=== PATIENT | female | born 1960 | race Caucasian/White ===

== ENCOUNTER 2018-01-12 21:14 | Emergency (ER) | payer OTHER, SELFPAY ==
[2018-01-12 21:15] VITALS: BP 171/100; PULSE 120; RESP 16; TEMP 36.8; O2SAT 94; BMI 42.1
[2018-01-12 22:51] LABS: Absolute Lymphocyte Count 2.11 X10^3/ul (0.83-4.51); Absolute Neutrophil Count 4.9 X10^3/uL (2.0-7.7); Basophil# 0.04 X10^3/uL; Basophil% 0.5 % (0-1); Eosinophil# 0.21 X10^3/uL; Eosinophils% 2.6 % (0-5); Hematocrit 43.5 % (37-47); Hemoglobin 14.2 g/dl (12.0-15.0); Lymphocyte # 2.11 X10^3/ul (4.0); Lymphocyte % 26.6 % (19-41); Mean Corp Hgb Conc 32.6 g/gl (32-36); Mean Corpuscular Hgb 27.7 pg (27.0-32.0); Mean Platelet Vol. 10.7 fl (6.2-12.0); Monocyte# 0.64 X10^3/uL; Monocyte% 8.1 % (0-10); Neutrophil # 4.92 X10^3/uL (2.7-7.7); Neutrophil % 62.1 % (47-70); Platelet Count 196 K/mm3 (150-450); RBC Distribution Width CV 14.1 % (11.6-14.6); RBC Distribution Width SD 44.6 fl (35.1-43.9); Red Blood Count 5.12 M/mm3 (4.2-5.4); White Blood Count 7.9 K/mm3 (4.4-11.0)
[2018-01-12 23:00] LABS: POSITIVE COUNT NO; POSITIVE DIFFERENTIAL NO; POSITIVE MORPHOLOGY NO
[2018-01-12 23:04] LABS: Anion Gap 6 (5-15); BUN 20 mg/dL (7-18); BUN/Creat Ratio 26.8 RATIO (10-20); Calcium,Total 8.8 mg/dL (8.5-10.1); Chloride 107 mmol/L (98-107); Creatinine, Serum 0.75 mg/dL (0.55-1.02); EST Glomerular Filtration Rate 85 mL/min (>60); Est Glom Filt Rate - Afr Amer 103 mL/min (>60); Estimated Creatinine Clearance 81.45 ml/min; Glucose 127 mg/dL (74-106); Potassium 3.7 mmol/L (3.5-5.1); Sodium Level 140 mmol/L (136-145)
--- NOTE | 2018-01-12 23:19 | ED.DCSUM_ITS ---
- ER Visit Summary Date of Service: 01/12/18 Chief Complaint: Bilateral paresthesia from her toes to lips. History of Present Illness: The patient is a 57 F who presents with paresthesia that is bilateral. She denies headache, visual, ocular auditory symptoms. She denies ringing in her ears but does report bilateral muffled hearing. She denies rhinorrhea, congestion or postnasal drainage. She denies trouble with speech or swallowing. She denies cardiac, respiratory or GI symptoms. She denies dysuria, frequency, urgency or hematuria. She reports her arms feel heavy. She did not complaining of weakness or problems with coordination. There is no history of trauma. She has no significant past medical history. She reports she does not have a doctor. She is a smoker of half pack per day. Physical Examination: Vital signs noted and remarkable for a blood pressure 171/100 and heart rate of 120. BMI is 42.1. Head is atraumatic normocephalic. Pupils are equal round reactive. Extraocular muscles are intact. TMs are pearly white with landmarks noted. Nares patent with no drainage. Posterior pharynx without erythema or exudate. Uvula is midline. There is no dysphonia or dysphasia. Trachea is midline. There is no stridor with auscultation of the neck. Funduscopic exam reveals normal cup-to-disc ratio and no evidence of papilledema. Negative Chvostek sign. Heart is regular without murmur, gallop or rub. S1 and S2 are normal. Lungs are clear to auscultation with good movement of air bilaterally. Abdomen is soft nontender. Patient is alert and oriented ?3. Motor is 5 over 5. Sensory is intact. DTRs are symmetric with no clonus or Babinski sign. Cranial 2 through 12 are intact. Cerebellar testing is normal. Gait observed and normal. She is able to walk on her heels and toes. She was able to perform tandem gait without difficulty. She was able to walk backwards without difficulty. Romberg test with eyes open and closed was negative. Test Results: Basic metabolic panel revealed glucose of 127. CBC is normal. Emergency Department Course and Treatment: Because she is complaining of paresthesias will obtain electrolyte panel. Only medication is [id number] herbal supplements. Treatment Plan: Patient was informed paresthesia involving the entire body is not stroke, which was her main concern. She was informed that because of her numbness/tingling is unknown. Disposition: Discharged home with appropriate home-going instructions Impression: Bilateral paresthesia involving face, torso and extremities This note was generated with [employer] dictation software. It may contain incorrect words, spelling, and punctuation that were not noted in review of the chart prior to signing ED Disposition - Plan for ED Patient: Disposition: Home or Assisted Living Chief Complaint: Numb/Ting Instructions: ED Paraesthesias Referrals: Care Physician,Natalee Primary [Primary Care Provider] - Jersey Gibbons DO [STAFF PHYSICIAN] - 3-5 Days
[2018-01-12 23:45] VITALS: BP 138/90; PULSE 96; RESP 18; O2SAT 97
== END 2018-01-12 23:45 | disposition home or self-care (01) ==
PROVIDERS: Emergency Provider Emergency Medicine
DX: R20.2 Paresthesia of skin (principal); Z72.0 Tobacco use; E66.9 Obesity, unspecified; Z68.41 Body mass index [BMI] 40.0-44.9, adult
CPT/HCPCS: 80048; 85025; 99283; A4216